=== PATIENT | female | born 1955 | race Caucasian/White ===

== ENCOUNTER → 2017-10-23 | Outpatient (CLI) | payer BC | LOC: M ADAMS 11:16 | DX: M19.031 Primary osteoarthritis, right wrist (principal); M25.571 Pain in right ankle and joints of right foot | CPT/HCPCS: 73110 ==

== ENCOUNTER → 2017-12-07 | Outpatient (CLI) | payer BC | LOC: M ADAMS 13:48 | DX: J18.9 Pneumonia, unspecified organism (principal); R91.8 Other nonspecific abnormal finding of lung field | CPT/HCPCS: 71046 ==

== ENCOUNTER → 2018-01-01 | Outpatient (CLI) | payer BC | LOC: M WUC 17:07 | DX: R91.8 Other nonspecific abnormal finding of lung field (principal) | CPT/HCPCS: 71046 ==

== ENCOUNTER → 2018-01-08 | Outpatient (REF) | payer BC ==
[2018-01-08 12:37] LABS: BACTERIA, URINE MOD AMOUNT; HYALINE CAST, URINE NONE SEEN /lpf (0-1); SQUAMOUS EPITHELIAL CELL URINE SMALL AMOUNT /hpf (SMALL AMT)
[2018-01-08 12:38] LABS: MICROSCOPIC EXAM PERFORMED
== END ==
LOC: M LAB REF 12:04
DX: R31.9 Hematuria, unspecified (principal)

== ENCOUNTER 2025-07-03 12:12 | Inpatient (IN) | payer MEDICARE ==
[~2025-07-03] VITALS: Ht 170.2 cm; Wt 73.5 kg
[~2025-07-03 12:12] MED LIST: ATOR1TAB21 PO; BISO5TAB14 PO; ECHI400C19 PO; EPIP0.3I2 IM; GLUC1CAP10 PO; LISI5TAB11 PO; OMEG10002 PO; PROA1AER2 INH; TIZA2CAP PO; VITA100093 PO; [UNRECOGNIZED DRUG - OTHER] PO
[2025-07-03 13:29] LABS: BASO # 0.0 10^3/uL (0.0-0.2); BASO % 0.2 % (0.0-1.0); EOS # 0.2 10^3/uL (0.0-0.5); EOS % 1.7 % (0.0-3.0); LYMPH # 0.9 10^3/uL (1.5-5.0); LYMPH % 7.8 % (24.0-44.0); MONO # 0.6 10^3/uL (0.0-0.8); MONO % 5.5 % (2.0-8.0); NEUTROPHILS # 9.9 10^3/uL (1.5-8.5); NEUTROPHILS % 84.4 % (36.0-66.0); PLATELET COUNT, AUTOMATED 316 10^3/uL (150-450)
[2025-07-03] MEDS: PANTOPRAZOLE 40MG VIAL IV ONE (13:31)
[2025-07-03 13:45] LABS: INR 1.04
[2025-07-03 13:53] LABS: ALT/SGPT 27.0 U/L (7.0-40); AST/SGOT 18.0 U/L (<34); CALCIUM LEVEL 9.4 MG/DL (8.3-10.6); CARBON DIOXIDE LEVEL 26.0 MMOL/L (20-31); CHLORIDE LEVEL 99.0 MMOL/L (98-107); CREATININE FOR GFR 1.55 MG/DL (0.55-1.30); GLOMERULAR FILTRATION RATE 35.8 (>39); POTASSIUM SERUM 3.7 MMOL/L (3.5-5.1); SODIUM LEVEL 138.0 MMOL/L (136-145)
[2025-07-03] MEDS ORDERED: ISOVUE-370 76% 100 ML VIAL As Ordered ONE (13:59)
[2025-07-03 15:47] LABS: KETONE, URINE AUTO RFX NEGATIVE (NEGATIVE); LEUKOCYTE ESTERASE UR AUTO RFX NEGATIVE (NEGATIVE); MUCUS, URINE RFX SMALL (NEGATIVE); NITRITE, URINE AUTO RFX NEGATIVE (NEGATIVE); RBC, URINE AUTO RFX 2 /HPF (0-3); SQUAM EPITHELIAL CELL UR AURFX 3 /HPF (0-6); WBC, URINE AUTO RFX 5 /HPF (0-3)
[2025-07-03] MEDS: NS 500 ML IV ONE (16:21)
[2025-07-03] MEDS ORDERED: MOM 30 ML SUSPENSION UDC PO PRN (16:40)
[2025-07-03] MEDS ORDERED: ACETAMINOPHEN 325 MG TAB PO PRN (16:40)
[2025-07-03] MEDS ORDERED: ONDANSETRON 4MG 2ML VIAL IV PRN (16:45)
[2025-07-03] MEDS ORDERED: MORPHINE 4 MG/ML 1 ML VIAL IV PRN (16:45)
[2025-07-03] MEDS: NS (Normal Saline) 0.9% 1,000 ML IV SCH (17:15)
[2025-07-03 17:50] VITALS: O2SAT 95
[2025-07-03 17:56] VITALS: BP 134/98; TEMP 97.9; O2SAT 95
[2025-07-03] MEDS ORDERED: CIPROFLOXACIN 400 MG in IV 1 EA IV SCH (18:00)
[2025-07-03] MEDS ORDERED: metroNIDAZOLE 500 MG in IV 1 EA IV SCH (20:00)
[2025-07-03 20:28] VITALS: BP 135/96; TEMP 98.1; O2SAT 95
[2025-07-03 21:00] VITALS: O2SAT 91
[2025-07-03] MEDS ORDERED: HOME MED LIST COMPLETE! XX SCH (23:35)
[2025-07-04] MEDS: PANTOPRAZOLE 40MG VIAL IV SCH (02:20)
[2025-07-04 04:26] VITALS: BP 128/65; TEMP 97.2; O2SAT 94
[2025-07-04 07:03] LABS: BASO # 0.0 10^3/uL (0.0-0.2); BASO % 0.3 % (0.0-1.0); EOS # 0.4 10^3/uL (0.0-0.5); EOS % 4.2 % (0.0-3.0); LYMPH # 1.5 10^3/uL (1.5-5.0); LYMPH % 15.7 % (24.0-44.0); MONO # 0.8 10^3/uL (0.0-0.8); MONO % 7.7 % (2.0-8.0); NEUTROPHILS # 7.0 10^3/uL (1.5-8.5); NEUTROPHILS % 71.6 % (36.0-66.0); PLATELET COUNT, AUTOMATED 303 10^3/uL (150-450)
[2025-07-04 07:18] LABS: ALT/SGPT 21.0 U/L (7.0-40); AST/SGOT 15.0 U/L (<34); CALCIUM LEVEL 8.3 MG/DL (8.3-10.6); CARBON DIOXIDE LEVEL 25.0 MMOL/L (20-31); CHLORIDE LEVEL 106.0 MMOL/L (98-107); CREATININE FOR GFR 1.09 MG/DL (0.55-1.30); GLOMERULAR FILTRATION RATE 54.7 (>39); MAGNESIUM LEVEL 1.7 MG/DL (1.8-2.4); POTASSIUM SERUM 4.0 MMOL/L (3.5-5.1); SODIUM LEVEL 141.0 MMOL/L (136-145)
[2025-07-04] MEDS: CIPROFLOXACIN 500 MG TABLET PO SCH (18:40)
[2025-07-04 20:11] VITALS: BP 140/80; TEMP 98.2; O2SAT 98
[2025-07-05 04:59] VITALS: BP 131/72; TEMP 98.1; O2SAT 92
[2025-07-05 06:30] LABS: PLATELET COUNT, AUTOMATED 259 10^3/uL (150-450)
[2025-07-05 06:55] LABS: CALCIUM LEVEL 7.9 MG/DL (8.3-10.6); CARBON DIOXIDE LEVEL 23.0 MMOL/L (20-31); CHLORIDE LEVEL 108.0 MMOL/L (98-107); CREATININE FOR GFR 0.97 MG/DL (0.55-1.30); GLOMERULAR FILTRATION RATE 62.9 (>39); POTASSIUM SERUM 3.6 MMOL/L (3.5-5.1); SODIUM LEVEL 143.0 MMOL/L (136-145)
[2025-07-05] MEDS ORDERED: PANT20TA6 PO (10:07)
[2025-07-05] MEDS ORDERED: ACET32TAB PO (10:07)
[2025-07-05] MEDS ORDERED: METR-265 PO (10:07)
[2025-07-05] MEDS ORDERED: CIPR500T39 PO (10:07)
== END 2025-07-05 11:35 | disposition home or self-care (01) | DRG 392 ==
LOC: M ED 12:12 → M ED INP 16:39 → M MSPAV 17:48
PROVIDERS: ADMIT Student in an Organized Health Care Education/Training Program; ATTEND Student in an Organized Health Care Education/Training Program
DX: A09 Infectious gastroenteritis and colitis, unspecified (principal); N17.9 Acute kidney failure, unspecified; K81.0 Acute cholecystitis; D50.0 Iron deficiency anemia secondary to blood loss (chronic); I10 Essential (primary) hypertension; E78.5 Hyperlipidemia, unspecified; D72.829 Elevated white blood cell count, unspecified; K21.9 Gastro-esophageal reflux disease without esophagitis; G47.33 Obstructive sleep apnea (adult) (pediatric); J45.909 Unspecified asthma, uncomplicated; Z79.899 Other long term (current) drug therapy; Z91.018 Allergy to other foods